=== PATIENT | male | born 1985 | race Hispanic/Latino ===

== ENCOUNTER 2017-07-19 20:07 | Emergency (ER) | payer MEDICAID ==
--- NOTE | 2017-07-19 20:36 | ED PDOC ---
HPI: Psych/Substance Abuse Chief Complaint (Provider): crisis eval History Per: EMS Additional Complaint(s): 32 y/o male brought in by EMS for psychiatric evaluation. As per EMS, patient' s roommate called because he has been binge drinking and found an empty Fioricet bottle that was prescribed on 07/11/17 (60 tablets, directions: two pills every 6 hours as needed). Patient drowsy but arousable upon arrival; states he does not want to hurt himself or others. Admits to drinking today, states he did not take those pills today. HPI slightly limited due to patient' s current state. <Kallie Dior - Last Filed: 07/20/17 05:51> <Edison Contreras - Last Filed: 07/20/17 06:09> Time Seen by Provider: 07/19/17 20:21 Chief Complaint (Nursing): Psychiatric Evaluation Past Medical History Reviewed: Historical Data, Nursing Documentation, Vital Signs Vital Signs: Last Vital Signs Temp 98.3 F 07/19/17 20:12 Pulse 91 H 07/19/17 20:12 Resp 16 07/19/17 20:12 BP 129/89 07/19/17 20:12 Pulse Ox 99 07/19/17 20:12 - Family History Family History: States: No Known Family Hx <Kallie Dior - Last Filed: 07/20/17 05:51> Vital Signs: Last Vital Signs Temp 98.3 F 07/19/17 20:12 Pulse 91 H 07/19/17 20:12 Resp 16 07/19/17 20:12 BP 129/89 07/19/17 20:12 Pulse Ox 99 07/20/17 05:52 <Edison Contreras - Last Filed: 07/20/17 06:09> - Home Medications Home Medications: Ambulatory Orders Medication Instructions Recorded Acetaminophen/Butalbital/Caf 2 tab PO Q6 PRN 07/20/17 [Fioricet] - Allergies Allergies/Adverse Reactions: Allergies Allergy/AdvReac Type Severity Reaction Status Date / Time No Known Allergies Allergy Verified 07/19/17 20:12 Review of Systems ROS Statement: Except As Marked, All Systems Reviewed And Found Negative <Kallie Dior - Last Filed: 06/13/18 05:51> Physical Exam - Reviewed Nursing Documentation Reviewed: Yes Vital Signs Reviewed: Yes - Physical Exam Appears: Positive for: Well, Non-toxic, No Acute Distress Head Exam: Positive for: ATRAUMATIC, NORMAL INSPECTION, NORMOCEPHALIC Skin: Positive for: Normal Color Eye Exam: Positive for: Normal appearance, EOMI, PERRL ENT: Positive for: Normal ENT Inspection Cardiovascular/Chest: Positive for: Regular Rate, Rhythm Respiratory: Positive for: Normal Breath Sounds Gastrointestinal/Abdominal: Positive for: Normal Exam Back: Positive for: Normal Inspection Extremity: Positive for: Normal ROM Neurologic/Psych: Positive for: Alert, Oriented (responds to verbal stimuli) <Kallie Dior - Last Filed: 07/20/17 05:51> - Laboratory Results Result Diagrams: 07/19/17 20:45 07/19/17 20:45 - ECG ECG: Positive for: Viewed By Me (reviewed by ED attending) ECG Rhythm: Positive for: Sinus Rhythm O2 Sat by Pulse Oximetry: 99 - Progress ED Course And Treament: labs, urine, ekg, classroom monitor, 1:1, poison control Poison control contacted by RN; recommends IV mucomyst if LFT's or Tylenol level elevated Tylenol and LFTs WNL; will repeat Tylenol level at 4 hours repeat Tylenol level neg. 21:30 Patient sleeping; no acute distress. VS on monitor 23:00 Patient sleeping; no acute distress. VS on monitor 07/20/17 00:30 Patient sleeping; no acute distress. VS on monitor 2:00 Patient sleeping; no acute distress. VS on monitor 3:30 Patient sleeping; no acute distress. VS on monitor 5:00 Patient awake, alert, oriented x3 Patient evaluated by rodent control worker; to be screened as per Dr. Bradford <Kallie Dior - Last Filed: 07/20/17 05:51> - Laboratory Results Result Diagrams: 07/19/17 20:45 07/19/17 20:45 <Edison Contreras - Last Filed: 07/20/17 06:09> Medical Decision Making Medical Decision Makin Patient under this provider's direct care. [facility] states they will not evaluate patient until EtOH level is <100. Repeat EtOH level will be taken at 0845. Patient resting comfortably. Vitals stable. 0700 Patient signed out to Dr. James pending repeat EtOH level and [facility] evaluation. Scribe Attestation: Documented by Isabella Morel acting as a scribe for Edison Contreras MD. Scribe Attestation: All medical record entries made by the Scribe were at my direction and personally dictated by me. I have reviewed the chart and agree that the record accurately reflects my personal performance of the history, physical exam, medical decision making, and the department course for this patient. I have also personally directed, reviewed, and agree with the discharge instructions and disposition. <Edison Contreras - Last Filed: 07/20/17 06:09> Disposition - Disposition Disposition Time: 06:00 Patient Signed Over To: Edison Contreras Handoff Comments: pending [facility] <Kallie Dior - Last Filed: 07/20/17 05:51> - Patient ED Disposition Is Patient to be Admitted: Transfer of Care - Disposition Disposition Time: 07:00 Patient Signed Over To: Levi James Handoff Comments: pending repeat EtOH level and [facility] evaluation <Edison Contreras - Last Filed: 07/20/17 06:09> - Clinical Impression Clinical Impression: Alcohol abuse - Disposition Condition: STABLE Forms: [employer] ([place]i)
[2017-07-19 20:59] LABS: BASO # 0.1 K/uL (0.0-0.2); EOS # 0.1 K/uL (0.0-0.7); MONO # 0.3 K/uL (0.0-0.8); NEUT # 1.9 K/uL (1.8-7.0); NRBC % 0.1 % (0.0-0.0)
[2017-07-19 21:08] LABS: ACETAMINOPHEN < 10.0 ug/ml (10.0-30.0); SALICYLATE < 1.0 mg/dl
[2017-07-19 21:16] LABS: BASO % 1.6 % (0.0-2.0); EOS % 1.1 % (0.0-4.0); HEMOGLOBIN 13.8 g/dL (12.0-18.0); LYMPH # 2.6 K/uL (1.0-4.3); LYMPH % 53.7 % (20.0-40.0); MEAN CORPUSCULAR HGB CONC 34.4 g/dL (33.0-37.0); MEAN PLATELET VOLUME 7.4 fl (7.2-11.7); MONO % 5.4 % (0.0-10.0); NEUT % 38.2 % (50.0-75.0); RBC 4.31 Mil/uL (4.40-5.90); RED CELL DISTRIBUTION WIDTH 14.1 % (11.5-14.5); WHITE BLOOD COUNT 4.9 K/uL (4.8-10.8)
[2017-07-19 21:17] LABS: ALB/GLOB RATIO 1.3 (1.0-2.1); ALBUMIN 3.7 g/dL (3.5-5.0); ALT/SGPT 68 U/L (21-72); AST/SGOT 58 U/L (17-59)
[2017-07-19 21:18] LABS: BLOOD UREA NITROGEN 6 mg/dl (9-20); CALCIUM 8.6 mg/dL (8.4-10.2); GFR AFRICAN-AMERICAN > 60; GFR NON-AFRICAN AMERICAN > 60
[2017-07-19 21:34] LABS: PARTIAL THROMBOPLASTIN TIME 24.2 Seconds (25.6-37.1); PROTHROMBIN TIME 11.2 Seconds (9.8-13.1)
[2017-07-19 22:26] LABS: URINE BILIRUBIN NEGATIVE (NEGATIVE); URINE BLOOD NEGATIVE (NEGATIVE); URINE CLARITY CLEAR (Clear); URINE COLOR YELLOW (YELLOW); URINE GLUCOSE (UA) NEG (Normal); URINE LEUKOCYTE ESTERASE NEG Leu/uL (Negative); URINE PROTEIN NEGATIVE (NEGATIVE); URINE UROBILINOGEN 0.2-1.0 mg/dL (0.2-1.0)
[2017-07-19 22:38] LABS: BARBITURATES, UR POSITIVE (NEGATIVE); BENZODIAZEPINES, UR NEGATIVE (NEGATIVE); OPIATES, UR NEGATIVE (NEGATIVE); PHENCYCLIDINE, UR NEGATIVE (NEGATIVE)
[2017-07-20 00:43] LABS: ACETAMINOPHEN < 10.0 ug/ml (10.0-30.0)
[2017-07-20 01:56] LABS: SALICYLATE < 1.0 mg/dl
--- NOTE | 2017-07-20 07:52 | ED PDOC ---
- Laboratory Results Result Diagrams: 07/19/17 20:45 07/19/17 20:45 - ECG O2 Sat by Pulse Oximetry: 99 - Progress ED Course And Treament: 700: Took over care from Dr. Contreras. Fu on [facility] [place]. Medically cleared by him. 1236: Stable. AAOx3. Pain free. Crisis, psychiatrist, and [facility] screener saw pt. Does not meet criteria for admit per them. Will dc and fu. Disposition - Clinical Impression Clinical Impression: Polysubstance abuse - POA Present On Arrival: None - Disposition Referrals: [facility] [place] [Outside] [facility] [place] [Outside] Disposition: Routine/Home Disposition Time: 12:38 Condition: STABLE Additional Instructions: Return if not better in 3 days. Instructions: Alcohol Abuse and Alcoholism (DC), Drug Abuse and Drug Addiction (DC)
--- NOTE | 2017-07-20 11:41 | CARD ---
APPROVED REPORT EKG Measurement Heart [id number] <Conclusion> Normal sinus rhythm Normal ECG
[2017-07-20 12:54] VITALS: BP 112/57; PULSE 83; RESP 17; TEMP 97.8; O2SAT 100
== END 2017-07-20 12:53 | disposition home or self-care (01) ==
LOC: H.ER 20:07
DX: F10.10 Alcohol abuse, uncomplicated (principal)
CPT/HCPCS: 80053; 81003; 82948; 85025; 85610; 85730; 93005; 99285; G0480